=== PATIENT | male | born 1970 | race Hispanic/Latino ===

== ENCOUNTER 2019-10-18 07:26 | Emergency (ER) | payer MEDICAID, SELFPAY ==
[~2019-10-18] VITALS: Ht 175.3 cm; Wt 82.6 kg
[2019-10-18] MEDS ORDERED: NS 1,000 ML IV ONE (08:00)
--- NOTE | 2019-10-18 09:20 | REP ---
CHEST PA AND LATERAL: 10/18/2019. CLINICAL HISTORY: Overdose. FINDINGS: No prior study. Two-views show the lungs marginally adequate in their degree of inflation. There is no effusion or definite infiltrate, but some minor subsegmental atelectatic changes in the bases noted. Heart not enlarged. No mediastinal or hilar abnormality. Aorta and airway intact. Bones unremarkable. IMPRESSION: 1. Borderline level of inflation with some minor basilar atelectatic change but no cardiomegaly, edema, acute infiltrate, effusion, or mass. Electronically Signed by Valente Brewster MD 10/18/2019 07:43 P
[2019-10-18 11:00] VITALS: BP 104/54
== END 2019-10-18 11:26 | disposition home or self-care (01) ==
LOC: M ED 07:26 → EDBD 07:26 → M ED 11:26
DX: T40.1X1A Poisoning by heroin, accidental (unintentional), initial encounter (principal); F11.90 Opioid use, unspecified, uncomplicated